=== PATIENT | male | born 1970 | race Caucasian/White ===

== ENCOUNTER 2020-07-26 00:18 | Emergency (ER) | payer MEDICAID ==
[~2020-07-26] VITALS: Ht 195.6 cm; Wt 121.7 kg
[2020-07-26] MEDS ORDERED: DEXAMETHASONE 4 MG TABLET PO ONE (01:00)
[2020-07-26] MEDS ORDERED: DEXAMETHASONE 4 MG TABLET ONE (01:02)
--- NOTE | 2020-07-26 01:08 | NUR ---
BREAK RN: PT MEDICATED. VSS. PT RESTING IN NAD. CALL LIGHT IN RECH
[2020-07-26 01:10] VITALS: BP 137/92
--- NOTE | 2020-07-26 01:33 | NUR ---
PT REFUSING D/C PAPERWORK. PT YELLED "I DONT WANT IT, I DONT NEED THAT SHIT. I'M NOT GOING TO SIGN ANYTHING, THIS WAS A WAS OF MY DAMN TIME". PT AMBULATORY WITH STEADY GAIT OUT OF ED. PT GIVEN VERBAL INSTRUCTIONS AT TIME OF D/C
== END 2020-07-26 01:36 | disposition home or self-care (01) ==
LOC: ED 00:47
DX: J02.8 Acute pharyngitis due to other specified organisms (principal)
CPT/HCPCS: 87081; 87147; 87880; 99283

== ENCOUNTER 2020-08-06 11:25 | Emergency (ER) | payer MEDICAID ==
[~2020-08-06] VITALS: Ht 195.6 cm; Wt 120.3 kg
[2020-08-06 11:35] VITALS: BP 123/76
[2020-08-06] MEDS ORDERED: LIDOCAINE-MPF 1%, 5ML ONE (12:21)
--- NOTE | 2020-08-06 12:25 | NUR ---
PT STATES WHILE SHOOTING METH INTO HIS ARM, THE NEEDLE BROKE OFF INTO HIS SKIN. PT HAS A RED RAISED AREA AT INJECTION SITE. MEDINA MILLER AT BEDSIDE FOR I&D.
--- NOTE | 2020-08-06 12:32 | NUR ---
MEDS PULLED FOR PROVIDER ADMIN
--- NOTE | 2020-08-06 13:19 | NUR ---
PT LEFT WITHOUT RECEIVING WRITTEN DISCHARGE
== END 2020-08-06 13:20 | disposition home or self-care (01) ==
LOC: ED 13:08
DX: S51.042A Puncture wound with foreign body of left elbow, initial encounter (principal); X58.XXXA Exposure to other specified factors, initial encounter; Y93.89 Activity, other specified; Y92.410 Unspecified street and highway as the place of occurrence of the external cause; Y99.8 Other external cause status
CPT/HCPCS: 10120; 99285

== ENCOUNTER 2020-11-29 14:42 | Emergency (ER) | payer MEDICAID ==
[~2020-11-29] VITALS: Ht 193 cm; Wt 121.0 kg
[2020-11-29 14:44] VITALS: BP 112/80
--- NOTE | 2020-11-29 15:00 | NUR ---
pt ambulatory to room from triage, pt requesting rx for blood pressure
--- NOTE | 2020-11-29 15:20 | NUR ---
naren Patel at bedside for eval
--- NOTE | 2020-11-29 15:37 | NUR ---
pt provided with rx refill, educated on discharge instructions, verbalized understanding. pt ambulatory to dc desk with steady gait.
== END 2020-11-29 15:40 | disposition home or self-care (01) ==
LOC: ED 15:15
DX: I10 Essential (primary) hypertension (principal); Z76.0 Encounter for issue of repeat prescription
CPT/HCPCS: 99281

== ENCOUNTER 2020-12-04 21:21 | Emergency (ER) | payer MEDICAID ==
[~2020-12-04] VITALS: Ht 193 cm; Wt 118.0 kg
--- NOTE | 2020-12-04 22:21 | NUR ---
STAGE PRODUCER: PT. TO ROOM FROM LOBBY AT THIS TIME.
[2020-12-04 23:08] VITALS: BP 111/66
--- NOTE | 2020-12-04 23:09 | NUR ---
PT C/O OF RIGHT FOREARM PAIN, REDDENED AND SWOLLEN. PT STATES HE WAS DOING CRANK AND MISSED AND FELT COLD SENSATION. CMS INTACT DISTAL TO INJURY. ATTACHED TO MONITORS, VSS. NADN. BED IN LOW, RAILS ENGAGED, CALL LIGHT ON LAP.
--- NOTE | 2020-12-04 23:13 | NUR ---
Patient/Caregiver given discharge instructions and they have confirmed that they understand the instructions. Patient ambulatory with steady gait. NAD, all questions answered appropriately, denies additional needs at this time. No personal belongings left in room after discharge.
== END 2020-12-04 23:14 | disposition home or self-care (01) ==
LOC: ED 22:45
DX: L03.113 Cellulitis of right upper limb (principal); I10 Essential (primary) hypertension
CPT/HCPCS: 99283

== ENCOUNTER 2020-12-26 12:56 | Emergency (ER) | payer MEDICAID ==
[~2020-12-26] VITALS: Ht 193 cm; Wt 121.9 kg
[2020-12-26 14:15] VITALS: BP 142/87
--- NOTE | 2020-12-26 16:17 | NUR ---
PORT PATROL OFFICER: CALLED FOR ROOM, NO ANSWER
--- NOTE | 2020-12-26 16:30 | NUR ---
EMPLOYMENT CONSULTANT: CALLED FOR ROOM, NO ANSWER
--- NOTE | 2020-12-26 16:54 | NUR ---
IMPORT EXPORT COORDINATOR: CALLED FOR ROOM , NO ANSWER
== END 2020-12-26 16:56 | disposition left against medical advice (07) ==
LOC: ED 16:50
DX: I10 Essential (primary) hypertension (principal); Z76.0 Encounter for issue of repeat prescription
CPT/HCPCS: 99281